=== PATIENT | female | born 1970 | race Caucasian/White ===

== ENCOUNTER 2018-04-02 18:33 | Emergency (ER) | payer OTHER, SELFPAY ==
[2018-04-02 18:36] VITALS: BP 112/65; PULSE 89; RESP 14; TEMP 36.8; O2SAT 99
--- NOTE | 2018-04-02 19:34 | ED.GENADUL_ITS ---
Discharge Plan Disposition Patient Disposition: HOME Condition: Fair Discharge Details Chief Complaint: Cellulitis Clinical Impression: Cellulitis Primary Care Provider: Janay Henriquez ED Provider: Polina Herman Home Meds and New Rx's Prescriptions: New cephalexin [Keflex] 500 mg capsule 500 mg PO QID Qty: 28 RF: 0 Continue multivitamin [One Daily] 1 EACH tablet 1 ea PO DAILY RF: 0 valacyclovir [Valtrex] 500 MG tablet 2 tab PO BID PRN Qty: 28 RF: 2 Discharge Instructions Instructions: Cellulitis (ED) Additional Instructions: Encourage hydration. Tylenol and/or ibuprofen as needed for discomfort. Please take antibiotics as prescribed. Even if symptoms improve please take the entire course. Please follow-up with primary care in 1 week if symptoms have not improved. 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 She reports that she first noted a bump last night with a central area of small ecchymosis. Reports that she did try to pop this last night with a needle. Was unable to express any fluid or discharge. States that today she then noted a similar lesion distal to this. On exam, I am able to visualize 3 very small 1-2 mm circular areas of ecchymosis with underlying area of swelling. Patient does have discomfort with palpation of these areas. Concern for possible oslers nodes. However, patient appears quite well. No murmur on exam, she appears nontoxic. Vital signs are within normal limits. She is not an IV drug user. No travel outside of the country. Discussed the case with Dr. Glass who also evaluated the patient. She does not feel at this point that there is indication to suggest endocarditis. Patient will be treated for possible infection. Will treat with Keflex. Encouraged hydration. Discussed new/wrosening symptoms and when to seek care urgently once again. Advised f/u with PCP in one week for reevaluation and advised on when to seek care urgently once again. We discussed that this may also develop into something else that may need to be reevaluated as the findings are fairly subtle at this time. All of her questions adn concerns were addressed, she is in agreement with this plan. HPI General Mode of arrival: ambulatory . Date/Time Provider Initiated Documentation: 04/02/18 18:49 . Limitations to Documentation: no limitations . Information obtained by: patient . History of Present Illness 47 year old F presents to the emergency department with the chief complaint of left thumb pain and rash, described as moderate, Quality is described as aching, and is localized to the left and upper extremity. Patient reports no radiation. Patient started experiencing this day(s) (1) and it has been constant. No relieving factors improve symptom(s), No exacerbating factors reported . Patient notes no other symptoms.; denies chest pain, cough, diaphoresis, fever/chills, nausea/vomiting and weakness. Patient did receive the following treatments prior to arrival, none Related Data Home Medications Medication Instructions Recorded Confirmed multivitamin [One Daily] 1 ea PO DAILY 11/09/12 04/02/18 valacyclovir [Valtrex] 2 tab PO BID PRN #28 tab-cap 02/12/14 04/02/18 cephalexin [Keflex] 500 mg PO QID #28 cap 04/02/18 Previous Rx's Medication Instructions Recorded cephalexin [Keflex] 500 mg PO QID #28 cap 04/02/18 Allergies Allergy/AdvReac Type Severity Reaction Status Date / Time mesalamine Allergy Intermediate Hives Verified 04/02/18 18:43 pneumococcal 23-valent Allergy Intermediate SOB, Unverified 04/02/18 18:43 polysacchari coughing [From Pneumovax 23] mercaptopurine AdvReac Severe fever, Unverified 04/02/18 18:43 elevated LFT Sulfa (Sulfonamide AdvReac Headache Unverified 04/02/18 18:43 Antibiotics) General Stated Complaint: Cellulitis BLANE: 3 Review of Systems Constitutional Reports as per HPI, Denies body ache(s), Denies chills, Denies fever(s) and Denies weakness Cardiovascular Reports as per HPI and Denies chest pain Respiratory Reports as per HPI and Denies cough Gastrointestinal Reports as per HPI, Denies abdominal pain, Denies change in bowel habits, Denies nausea and Denies vomiting Musculoskeletal Reports as per HPI and Denies tingling Integumentary/Breasts Reports as per HPI and Reports rash Neurologic Reports as per HPI, Denies tingling, Denies paresthesias and Denies weakness PFSH Family History Mother Diabetes Essential hypertension Depression Neoplasm Father Heart disease Parkinson disease Grandfather Neoplasm Parkinson disease Grandfather Neoplasm Grandmother Neoplasm Grandmother No problems noted. Brother No problems noted. Son No problems noted. Social History Smoking/Tobacco Use Status: Never Exam Const General: cooperative, healthy appearing, comfortable, no acute distress and well developed Nutritional Appearance: average body habitus and well nourished Orientation: alert and awake Resp Effort & Inspection: normal respiratory effort, able to speak in complete sentences and no respiratory distress Auscultation: clear to auscultation bilaterally, no rales, no rhonchi and no wheezes Cardio Rate: regular rate Rhythm: regular rhythm Heart Sounds: S1 normal and S2 normal Skin Rashes: rashes noted (patient has 3 small ecchymotic raised areas on the left thumb, one in the center of the pad, one slightly more distal and one under the distal aspect of the nail bed. No surrounding erythema, warmth, discharge. Pain with palpation over the central one) Neuro General: alert and awake Cognition: normal cognition Speech: speech normal Gait: normal gait Motor: muscle tone normal throughout Sensory Exam: no sensory deficits noted Extrem General: abnormal to inspection (rash as above), full ROM, normal capillary refill and normal exam except as noted Psych Appearance: grossly normal and well kempt Mental Status: mental status grossly normal Speech and Movement: speech and movement normal Course Vital Signs Temperature 36.8 C 04/02/18 18:36 Pulse 89 04/02/18 18:36 Respiratory Rate 14 04/02/18 18:36 Blood Pressure 112/65 04/02/18 18:36 Pulse Oximetry 99 04/02/18 18:36 Temperature 36.8 C 04/02/18 18:36 Temperature Source Skin 04/02/18 18:36 Pulse 89 04/02/18 18:36 Respiratory Rate 14 04/02/18 18:36 Respiratory Effort 04/02/18 18:44 Blood Pressure 112/65 04/02/18 18:36 Blood Pressure Position Sitting 04/02/18 18:36 Pulse Oximetry 99 04/02/18 18:36 Oxygen Delivery Method Room Air 04/02/18 18:36 Oxygen Flow Rate 0 04/02/18 18:36 Pain Level 5 04/02/18 18:36 Comment 04/02/18 18:36
== END 2018-04-02 19:39 | disposition home or self-care (01) ==
PROVIDERS: Emergency Provider Physician Assistant; PCP Family Medicine
DX: L03.012 Cellulitis of left finger (principal)
CPT/HCPCS: 99283

== ENCOUNTER 2018-04-04 13:52 | Outpatient (CLI) | payer OTHER, SELFPAY ==
[2018-04-04 14:18] LABS: Abs Immature Grans 0.01 k/cumm (0.0-0.09); Absolute Basophil Count 0.02 k/cumm (0.0-0.2); Absolute Eosinophil Count 0.11 k/cumm (0.0-0.7); Absolute Lymphocyte Count 1.44 k/cumm (1.2-3.4); Absolute Neutrophil Count 5.57 k/cumm (1.2-6.7); Basophils % 0.3; Eosinophils % 1.4; HCT 44.7 % (36.0-46.0); HGB 15.3 g/dL (12.0-15.5); Immature Grans % 0.1; Lymphocytes % 18.3; Mean Corp. HGB Concentration 34.2 g/dL (32.0-36.0); Mean Corpuscular Hemoglobin 31.2 pg (27.0-33.0); Mean Platelet Volume 10.9 fL (8.0-11.0); Monocytes % 8.9; Platelet Count 301 x1000/uL (130-400); RBC 4.91 m/cumm (4.00-5.20); RBC Distribution Width 13.1 % (11.7-14.6); White Blood Cell Count 7.85 k/cumm (4.4-10.8)
[2018-04-04 14:23] LABS: Bilirubin Negative (Negative); Blood Trace-intact (Negative); Clarity Clear; Glucose Negative (Negative); Ketones Negative (Negative); Leukocyte Esterase Trace (Negative); Nitrite Negative (Negative); Specific Gravity 1.015 (1.005-1.025); Urobilinogen 0.2 EU/dL (Up TO 0.2)
[2018-04-04 14:42] LABS: Bacteria Rare HPF (Negative); C & S Indicated? Yes; Casts Negative LPF (Negative); Crystals Negative HPF (Negative); Epithelial Cells Few HPF (Negative); Mucus Negative (Negative); Other Cells Rare Renal (Negative)
[2018-04-04 14:53] LABS: ESR 14 MM/HR (0-20)
[2018-04-04 15:45] LABS: ALT 30 U/L (12-78); AST 23 U/L (15-37); Albumin 3.6 g/dL (3.4-5.0); Alkaline Phosphatase 82 U/L (46-116); Anion Gap 8.6 mmol/L (3-11); BUN 13 mg/dL (7-18); Bilirubin, Total 0.2 mg/dL (0.2-1.0); CO2 28.4 mmol/L (21.0-32.0); CREATININE 0.69 mg/dL (0.55-1.02); Calcium 8.8 mg/dL (8.5-10.1); Chloride 104 mmol/L (98-107); Glucose 91 mg/dL (70-100); Potassium 3.6 mmol/L (3.5-5.1); Sodium 141 mmol/L (136-145); Total Protein 7.2 g/dL (6.4-8.2)
== END 2018-04-04 14:12 ==
PROVIDERS: PCP Family Medicine; Visit Provider Family Medicine
DX: L98.9 Disorder of the skin and subcutaneous tissue, unspecified (principal); R01.1 Cardiac murmur, unspecified
CPT/HCPCS: 36415; 80053; 85652; 87077; 81003; 81015; 85025; 86140; 87086; 87186

== ENCOUNTER 2018-04-19 02:43 | Outpatient (CLI) | payer OTHER, SELFPAY ==
[2018-04-19 16:36] LABS: Bilirubin Negative (Negative); Blood Trace-intact (Negative); Clarity Sl Cloudy; Glucose Negative (Negative); Ketones Negative (Negative); Leukocyte Esterase Small (Negative); Nitrite Negative (Negative); Urobilinogen 0.2 EU/dL (Up TO 0.2)
[2018-04-19 16:50] LABS: Bacteria Few HPF (Negative); C & S Indicated? No/Sq. Contamination; Casts Negative LPF (Negative); Crystals Negative HPF (Negative); Epithelial Cells Many HPF (Negative); Mucus Negative (Negative); Other Cells Rare Renal (Negative)
== END 2018-04-19 03:03 ==
PROVIDERS: PCP Family Medicine; Visit Provider Family Medicine
DX: N39.0 Urinary tract infection, site not specified (principal); B96.5 Pseudomonas (aeruginosa) (mallei) (pseudomallei) as the cause of diseases classified elsewhere
CPT/HCPCS: 81003; 81015

== ENCOUNTER 2018-04-23 09:42 | Outpatient (CLI) | payer OTHER, SELFPAY | END 2018-04-23 10:02 | PROVIDERS: PCP Family Medicine; Visit Provider Family Medicine | DX: N39.0 Urinary tract infection, site not specified (principal) | CPT/HCPCS: 87086 ==

== ENCOUNTER 2018-04-25 00:49 | Outpatient (CLI) | payer OTHER, SELFPAY ==
--- NOTE | 2018-04-25 13:15 | DI.US_ITS ---
SYMPTOMS/DIAGNOSIS: PSEUDOMONAS UTI, ? UNDERLYING URINARY ANOMALY, B96.5, N39.0 RENAL ULTRASOUND: Routine examination. The right kidney measures 12.1 cm long. No renal masses or obstruction is seen. There is blood flow to the right kidney. There is a tiny 4 mm echogenic focus in the lower pole of the kidney, which may represent a nonobstructing stone. The left kidney measures 12.2 cm long. No renal mass, calculus or obstruction is identified. There is blood flow to the left kidney. The prevoid urinary bladder volume is 860 cc. Postvoid urinary bladder volume is 110 cc. The bladder wall appeared smooth. No intraluminal masses were present. Both ureteral jets were visualized. IMPRESSION: 1. Question of a 4 mm nonobstructing lower pole right renal stone. 2. Large postvoid urinary bladder volume.
== END 2018-04-25 01:09 ==
PROVIDERS: PCP Family Medicine; Visit Provider Family Medicine
DX: N39.0 Urinary tract infection, site not specified (principal); B96.5 Pseudomonas (aeruginosa) (mallei) (pseudomallei) as the cause of diseases classified elsewhere; N20.0 Calculus of kidney
CPT/HCPCS: 76770

== ENCOUNTER 2018-08-07 10:29 | Outpatient (REF) | payer OTHER, SELFPAY ==
--- NOTE | 2018-08-07 09:30 | PAPFT_PTH ---
PATIENT: Lynne Schneider LOC: [facility] U#:[id number] AGE/SX: 47/F ROOM: RE08/07/[address]: Janay Henriquez MD, DC : 1970 BED: DIS: 08/07/2018 SPEC #: [id number] RECD: 08/07/18 13:04 STATUS: APOLONIA GORDON #: [id number] ALTHEA: 08/07/18 09:[address]: Janay Henriquez DEPT: [facility] Cytology RECD BY: Adilene Shepherd Tissues: 1 - CX/ENDOCX FOR PAP SMEARS Procedures: PAP THIN PREP/UVM Screening HPV DNA PROBE Comments: [id number]
== END 2018-08-07 10:49 ==
LOC: LBN 10:29
PROVIDERS: PCP Family Medicine; Visit Provider Family Medicine
DX: Z12.4 Encounter for screening for malignant neoplasm of cervix (principal); Z11.51 Encounter for screening for human papillomavirus (HPV)
CPT/HCPCS: 88142; 87624

== ENCOUNTER 2021-06-25 01:28 | Outpatient (CLI) | payer OTHER, SELFPAY ==
--- NOTE | 2021-06-25 07:15 | DI.MAMMO_ITS ---
Exam(s) MAMMO SCREENING EXAM: MAMMO SCREENING CLINICAL HISTORY: screening,BASELINE, Z12.39. TECHNIQUE: Bilateral full field digital CC and MLO mammographic images were obtained with 3D tomosyn thesis and utilizing computer aided detection (CAD). COMPARISON: None. This is a baseline screening mammogram on this 50-year-old patient. Positive fam bessie history. Her mother was apparently diagnosed with breast cancer after age 50. FINDINGS: The fibroglandular tissue pattern is very dense, this decreasing the sensitivity of the mammogram for finding in underlying lesions. No obvious radiographic findings in left breast. In the right breast on 3D CC imaging there is a subtle suggestion a possible nodule measuring 4 x 3 m illimeters, located 4 cm in from the nipple. There is a small group of benign-appearing microcalcifications in the right breast noted. There is no significant architectural distortion nor skin thickening-retraction. IMPRESSION: Very dense bilateral fibroglandular tissue. Possible small right breast nodule. Spot compression CC view and ultrasound examination are recommended. Given the density of this patient's fibroglandular tissue and significant family history I recommend that she undergo complete bilateral breast ultraso und. BI-RADS Category 0 - Assessment Incomplete: Need additional imaging evaluation Breast Density - Category D - Extremely dense Breast density Category C or D implies that the patient has dense breast tissue. Dense breast tissue can make it harder to find cancer on a mammogram. Dense breast tissue is also associated with an incr eased risk of breast cancer. This information about the result of the mammogram report was provided to the patient to raise their awareness. Use this report when you speak with the patient about their risks for breast cancer, which includes their family history. At that time, you may recommend additional screening tests (Ultrasoun d or MRI) as these tests may add significant information. A negative radiographic report should not delay biopsy if a dominant or clinically suspicious mass is present. Up to ten percent of cancers are not identified on mammography. A negative report may reinforce clinical impression. Adenosis and dense breasts may obscure an underlying neoplasm. False positive reports average 6 to 10%. Patient will receive a letter notifying them of these results.
== END 2021-06-25 01:48 ==
PROVIDERS: PCP Family Medicine; Visit Provider Family Medicine
DX: Z12.31 Encounter for screening mammogram for malignant neoplasm of breast (principal); R92.8 Other abnormal and inconclusive findings on diagnostic imaging of breast
CPT/HCPCS: 77063; 77067

== ENCOUNTER 2021-07-07 00:35 | Outpatient (CLI) | payer OTHER, SELFPAY ==
--- NOTE | 2021-07-07 | DI.US_ITS ---
Exam(s) MG MAMMO SCREEN CALL BACK UNI US BREAST LT COMPLETE US BREAST RT COMPLETE EXAM: MG MAMMO SCREEN CALL BACK UNI CLINICAL HISTORY: POSSIBLE NODULE RT BREAST. TECHNIQUE: Craniocaudal spot compression digital Mammography view of the right breast with Computer Aided Diagnosis followed by Tomosynthesis andbilateral breast ultrasound. COMPARISON: [facility] MAMMO SCREENING from 06/25/2021 baseline exam FINDINGS: Mammography/Tomosynthesis: Masses/Architectural Distortion: None seen. Microcalcifictions: No suspicious pleomorphic-type are seen. Skin Thickening/Nipple Retraction: None. Bilateral breast US: Echotexture: Normal appearance of the glandular tissue. Shadowing: No suspicious foci. Cyst: None. Solid lesions: None seen. Ductal dilation: None. IMPRESSION: 1. No evidence of malignancy is noted. 2. Unless there is more urgent need, follow-up screening mammography is recommended, as per [place] [employer] guidelines. 3. The findings were discussed with the patient on the date of the examination. BI-RADS Category 1 - Negative Breast Density - Category D - Extremely dense A mammogram that demonstrates density of C or D indicates the patient's breast tissue is dense. Dense breast tissue is very common and is not abnormal, but dense breast tissue can make it harder to find cancer on a mammogram. Also, dense breast tissue may increase their breast cancer risk. This informa tion about the result of the mammogram report was provided to the patient to raise their awareness. U se this report when you speak with the patient about their risks for breast cancer, which includes th eir family history. At that time, you may recommend for more screening tests (Ultrasound or MRI) as t hey might be useful based on their risk. A negative radiographic report should not delay biopsy if a dominant or clinically suspicious mass is present. Up to ten percent of cancers are not identified on mammography. A negative report may reinforce clinical impression. Adenosis and dense breasts may obscure an underlying neoplasm. False positive reports average 6 to 10%. Patient will receive a letter notifying them of these results.
--- NOTE | 2021-07-07 | DI.US_ITS ---
Exam(s) MAMMO SCREEN CALL BACK UNI US BREAST LT COMPLETE EXAM: MAMMO SCREEN CALL BACK UNI CLINICAL HISTORY: POSSIBLE NODULE RT BREAST. TECHNIQUE: Craniocaudal spot compression digital Mammography view of the right breast with Computer Aided Diagnosis followed by Tomosynthesis andbilateral breast ultrasound. COMPARISON: [facility] MAMMO SCREENING from 06/25/2021 baseline exam FINDINGS: Mammography/Tomosynthesis: Masses/Architectural Distortion: None seen. Microcalcifictions: No suspicious pleomorphic-type are seen. Skin Thickening/Nipple Retraction: None. Bilateral breast US: Echotexture: Normal appearance of the glandular tissue. Shadowing: No suspicious foci. Cyst: None. Solid lesions: None seen. Ductal dilation: None. IMPRESSION: 1. No evidence of malignancy is noted. 2. Unless there is more urgent need, follow-up screening mammography is recommended, as per [place] guidelines. 3. The findings were discussed with the patient on the date of the examination. BI-RADS Category 1 - Negative Breast Density - Category D - Extremely dense A mammogram that demonstrates density of C or D indicates the patient's breast tissue is dense. Dense breast tissue is very common and is not abnormal, but dense breast tissue can make it harder to find cancer on a mammogram. Also, dense breast tissue may increase their breast cancer risk. This informa tion about the result of the mammogram report was provided to the patient to raise their awareness. U se this report when you speak with the patient about their risks for breast cancer, which includes th eir family history. At that time, you may recommend for more screening tests (Ultrasound or MRI) as t hey might be useful based on their risk. A negative radiographic report should not delay biopsy if a dominant or clinically suspicious mass is present. Up to ten percent of cancers are not identified on mammography. A negative report may reinforce clinical impression. Adenosis and dense breasts may obscure an underlying neoplasm. False positive reports average 6 to 10%. Patient will receive a letter notifying them of these results.
== END 2021-07-07 00:55 ==
PROVIDERS: PCP Family Medicine; Visit Provider Family Medicine
DX: R92.8 Other abnormal and inconclusive findings on diagnostic imaging of breast (principal)
CPT/HCPCS: 76642; 77063; 77067

== ENCOUNTER 2022-02-28 15:36 | Outpatient (REF) | payer OTHER, SELFPAY ==
[2022-02-28 20:19] LABS: Source Nasal/Nares
[2022-03-01 12:05] LABS: COVID-19 PCR Negative (Negative)
== END 2022-02-28 15:37 | disposition home or self-care (01) ==
LOC: LBN 15:36
PROVIDERS: PCP Family Medicine; Visit Provider Family Medicine
DX: Z01.812 Encounter for preprocedural laboratory examination (principal); Z20.822 Contact with and (suspected) exposure to COVID-19
CPT/HCPCS: 87635

== ENCOUNTER 2022-06-16 10:33 | Outpatient (REF) | payer OTHER, SELFPAY ==
--- NOTE | 2022-06-16 09:45 | PAPFT_PTH ---
PATIENT: Lynne Schneider LOC: [facility] #:[id number] AGE/SX: 51/F ROOM: RE06/16/[address]: Janay Henriquez MD, DC : 1970 BED: DIS: 06/16/2022 SPEC #: [id number] RECD: 06/16/22 13:10 STATUS: APOLONIA REQ #: [id number] ALTHEA: 06/16/22 09:[address]: Janay Henriquez DEPT: [facility] Cytology RECD BY: Adilene Shepherd Tissues: 1 - CX/ENDOCX FOR PAP SMEARS Procedures: PAP THIN PREP/UVM Screening HPV DNA PROBE Comments: [id number]
== END 2022-06-16 10:34 | disposition home or self-care (01) ==
LOC: LBN 10:33
PROVIDERS: PCP Family Medicine; Visit Provider Family Medicine
DX: Z12.4 Encounter for screening for malignant neoplasm of cervix (principal); Z11.51 Encounter for screening for human papillomavirus (HPV)
CPT/HCPCS: 88142; 87624

== ENCOUNTER 2022-06-30 02:18 | Outpatient (CLI) | payer OTHER, SELFPAY ==
[2022-06-30 07:19] LABS: HCT 46.6 % (36.0-46.0); HGB 15.7 g/dL (11.2-15.7); MCH 31.3 pg (27.0-33.0); MCHC 33.7 % (32.0-36.0); MCV 93 fL (80-95); Platelet Count 334 10^3/uL (130-400); RBC 5.02 10^6/uL (3.93-5.22); RDW 11.9 % (11.7-14.6); RDW-SD 40.6 fL; WBC 4.99 10^3/uL (4.4-10.8)
[2022-06-30 07:46] LABS: Hemoglobin A1C 5.1 % (<5.7)
[2022-06-30 07:58] LABS: ALT 32 U/L (14-59); AST 22 U/L (15-37); Albumin 3.7 g/dL (3.4-5.0); Alkaline Phosphatase 90 U/L (46-116); Anion Gap 5.6 mmol/L (3-11); BUN 19 mg/dL (7-18); Bilirubin, Total 0.4 mg/dL (0.2-1.0); C-Reactive Protein < 0.05 mg/dL (0.0-0.3); CO2 31.4 mmol/L (21.0-32.0); CREATININE 0.9 mg/dL (0.55-1.02); Calcium 9.2 mg/dL (8.5-10.1); Chloride 104 mmol/L (98-107); Glucose 92 mg/dL (74-106); Sodium 141 mmol/L (136-145); TSH (W/Ref FT4) 1.78 uIU/mL (0.36-3.74); Total Protein 7.3 g/dL (6.4-8.2)
[2022-06-30 08:10] LABS: Vitamin D 25 Total 51.1 ng/mL (30-100)
== END 2022-06-30 02:19 | disposition home or self-care (01) ==
PROVIDERS: PCP Family Medicine; Visit Provider Family Medicine
DX: Z00.00 Encounter for general adult medical examination without abnormal findings (principal); E11.9 Type 2 diabetes mellitus without complications
CPT/HCPCS: 36415; 80053; 82306; 85027; 83036; 84443; 86140

== ENCOUNTER 2022-07-08 01:06 | Outpatient (CLI) | payer OTHER, SELFPAY ==
--- NOTE | 2022-07-08 08:45 | DI.MAMMO_ITS ---
Exam(s) MAMMO SCREENING EXAM: MAMMO SCREENING CLINICAL HISTORY: screening, Z12.39. TECHNIQUE: Bilateral full field digital CC and MLO mammographic images were obtained with 3D tomosyn thesis and utilizing computer aided detection (CAD). COMPARISON: 2021 FINDINGS: Masses/Architectural Distortion: None seen. Microcalcifications: No suspicious pleomorphic-type are seen. Skin Thickening/Nipple Retraction: None. IMPRESSION: 1. No significant interval change with no specific features of malignancy noted. 2. Unless there is more urgent need, annual screening mammography is recommended, as per [place] [employer] guidelines. BI-RADS Category 1-negative Breast Density - Category D - extremely dense Breast Density Category D: The mammogram demonstrates the patient's breast tissue is dense. Dense patrick ast tissue is very common and is not abnormal but dense breast tissue can make it harder to find canc er on a mammogram. Also, dense breast tissue may increase their breast cancer risk. This information about the result of the mammogram report was provided to the patient to raise their awareness. Use th is report when you speak with the patient about their risks for breast cancer, which includes their f amily history. At that time, you may recommend for more screening tests (Ultrasound or MRI) as they m ight be useful based on their risk. A negative radiographic report should not delay biopsy if a dominant or clinically suspicious mass is present. Up to ten percent of cancers are not identified on mammography. A negative report may reinforce clinical impression. Adenosis and dense breasts may obscure an underlying neoplasm. False positive reports average 6 to 10%.
== END 2022-07-08 01:26 ==
LOC: DI 01:06
PROVIDERS: PCP Family Medicine; Visit Provider Family Medicine
DX: Z12.31 Encounter for screening mammogram for malignant neoplasm of breast (principal); R92.8 Other abnormal and inconclusive findings on diagnostic imaging of breast
CPT/HCPCS: 77063; 77067

== ENCOUNTER 2022-07-15 01:28 | Outpatient (CLI) | payer OTHER, SELFPAY ==
[2022-07-15 08:04] LABS: Calculated LDL 117 mg/dL (<100); Cholesterol 186 mg/dL (<200); HDL Cholesterol 61 mg/dL (40-60); Triglyceride 42 mg/dL (<150)
== END 2022-07-15 01:29 | disposition home or self-care (01) ==
PROVIDERS: PCP Family Medicine; Visit Provider Family Medicine
DX: Z00.00 Encounter for general adult medical examination without abnormal findings (principal); Z13.220 Encounter for screening for lipoid disorders
CPT/HCPCS: 36415; 80061

== ENCOUNTER → 2023-04-12 02:43 | Outpatient (CLI) | payer OTHER, SELFPAY ==
--- NOTE | 2023-04-12 08:45 | DI.RAD_ITS ---
Exam(s) XR SHOULDER LT COMPLETE 2+V EXAM: XR SHOULDER LT COMPLETE 2+V CLINICAL HISTORY: left shoulder pain, M25.512. TECHNIQUE: 2D digital imaging was performed of the left shoulder. Five images were obtained. AP, G rashey, Y-view and axillary views were obtained. COMPARISON: No exams were available for comparison FINDINGS: BONES: No acute fracture is present. No bony destructive lesion is seen. JOINTS: No dislocation present. SOFT TISSUE: Normal. IMPRESSION: Unremarkable radiographs of the left shoulder. DATA REPOSITORY: RADIATION DOSE DELIVERED:
== END ==
PROVIDERS: PCP Family Medicine; Visit Provider Family Medicine
DX: M25.512 Pain in left shoulder (principal)
CPT/HCPCS: 73030

== ENCOUNTER → 2023-05-30 03:09 | Outpatient (CLI) | payer OTHER, SELFPAY ==
--- NOTE | 2023-05-30 06:15 | DI.MRI_ITS ---
Exam(s) MR UPPER JOINT LT WO EXAM: MR UPPER JOINT LT WO CLINICAL HISTORY: rotator cuff tear,internal derangement lt shoulder,m24.812 TECHNIQUE: Multiplanar multisequence MRI of the shoulder was performed. COMPARISON: CR XR SHOULDER LT COMPLETE 2+V from 04/12/2023 FINDINGS: MARROW:There is no evidence of fracture, Hill-Sachs deformity, nor ominous osseous lesions. GLENOHUMERAL JOINT: No joint effusion nor obvious loose intra-articular bodies. No chondral defects. No osteophytes. No degenerative subarticular cysts. No evidence of capsular tear. The inferior glenoh umeral ligament is intact. ROTATOR CUFF MECHANISM: AC JOINT/ACROMIUM: AC joint appears unremarkable.. There is no evidence of os acromiale. Supraspinatus: There is signal abnormality in the supraspinatus tendon consistent with tendinitis, mo st prominent in the anterior aspect of the tendon. There is no evidence of tendon tear. No muscle b sundar atrophy there is no fluid in the subacromial bursa. Infraspinatus: Intact. No evidence of tear nor muscle atrophy. Teres Minor: Intact. No evidence of tear nor muscle atrophy. Subscapularis/anterior cuff: Intact. No abnormal signal at the level of the multipennate insertional fibers. No significant tear nor atrophy. BICEPS TENDON: Exhibits normal position within the intertubercular groove with no evidence of biceps tear. No significant tenosynovitis. LABRUM: There is fluid signal interposed between the anterior superior labrum and osseous glenoid con sistent with anterior labral tear. There is thin fluid signal interposed between the anterior aspect of the superior labrum and osseous glenoid which may be continuation of the tear versus sublabral re cess. The posterior labrum is intact. Inferior labrum is intact. There is mild increased signal wi thin the inferior glenohumeral ligament QUADRILATERAL SPACE: No evidence of mass in the region of the axillary nerve and dorsal circumflex hu meral vessels. Visualized triceps muscle at this level appears unremarkable. IMPRESSION: 1. Increased signal within the supraspinatus tendon consistent with tendinitis-tendinosis. No high-g rade tear. No fluid in the subacromial-subdeltoid bursa. The other muscles of the rotator cuff mech anism appear unremarkable. There are no significant degenerative changes in the AC joint and no oste ophytic ridge on the undersurface of the acromion. 2. There is tear of the anterior labrum. Also possible SLAP tear versus a prominent sublabral recess . 3. Increased signal evident within the inferior glenohumeral ligament which may indicate partial tear ing. 4. No evidence of biceps tendon tear nor displacement. 5. No significant osteoarthritic degenerative changes in the glenohumeral joint and no evidence of j oint effusion or loose intra-articular bodies. DATA REPOSITORY:
== END ==
PROVIDERS: PCP Family Medicine; Visit Provider Family Medicine
DX: M65.232 Calcific tendinitis, left forearm (principal)
CPT/HCPCS: 73221

== ENCOUNTER → 2023-05-31 13:19 | Outpatient (BNVA) | payer OTHER, SELFPAY | PROVIDERS: PCP Family Medicine; Referring Provider Family Medicine; Visit Provider Student in an Organized Health Care Education/Training Program | DX: M75.82 Other shoulder lesions, left shoulder (principal); M75.02 Adhesive capsulitis of left shoulder | CPT/HCPCS: 20610; 99202; J1030 ==

== ENCOUNTER → 2023-08-01 14:24 | Outpatient (BNVA) | payer OTHER, SELFPAY | PROVIDERS: PCP Family Medicine; Visit Provider Student in an Organized Health Care Education/Training Program | DX: M75.82 Other shoulder lesions, left shoulder (principal); M75.02 Adhesive capsulitis of left shoulder | CPT/HCPCS: 99213 ==

== ENCOUNTER → 2023-11-20 02:48 | Outpatient (CLI) | payer OTHER, SELFPAY ==
--- NOTE | 2023-11-20 06:15 | DI.MAMMO_ITS ---
Exam(s) MAMMO SCREENING EXAM: MAMMO SCREENING CLINICAL HISTORY: screening,Z12.39 TECHNIQUE: Mammograms were interpreted according to the usual protocol including computer analysis w [employer] CAD system, tomosynthesis and C-view imaging. COMPARISON: 2021 and 2022 FINDINGS: The breasts are composed of heterogeneously dense fibroglandular densities, Breast Density category C . No suspicious masses or suspicious microcalcifications are seen. No skin thickening or abnormal axillary lymph nodes are seen. There has been no significant change from prior exams. IMPRESSION: BI-RADS Category 1, Negative mammogram. Yearly screening mammography is recommended. Breast Density Category C, heterogeneously Dense. The mammogram demonstrates the patient's breast tissue is dense. Dense breast tissue is very common a nd is not abnormal but dense breast tissue can make it harder to find cancer on a mammogram. Also, de nse breast tissue may increase breast cancer risk. This information about the result of the mammogram report was provided to the patient to raise their awareness. Use this report when you speak with the patient about their risks for breast cancer, which includes their family history. At that time, you may recommend additional screening tests (Ultrasound or MRI) as they might be useful based on their r isk. A negative radiographic report should not delay biopsy if a dominant or clinically suspicious mass is present. Up to ten percent of cancers are not identified on mammography. A negative report may reinforce clinical impression. Adenosis and dense breasts may obscure an underlying neoplasm. False positive reports average 6 to 10%.
== END ==
PROVIDERS: PCP Family Medicine; Visit Provider Family Medicine
DX: Z12.31 Encounter for screening mammogram for malignant neoplasm of breast (principal)
CPT/HCPCS: 77063; 77067

== ENCOUNTER 2024-03-28 01:53 | Outpatient (CLI) | payer OTHER, SELFPAY ==
[2024-03-28 10:41] LABS: Vitamin B12 > 2000 pg/mL (193-986)
== END 2024-03-28 01:54 | disposition home or self-care (01) ==
LOC: LBO 01:53
PROVIDERS: PCP Family Medicine; Visit Provider Family Medicine
DX: K13.79 Other lesions of oral mucosa (principal)
CPT/HCPCS: 36415; 82607

== ENCOUNTER 2024-04-10 08:23 | Outpatient (CLI) | payer OTHER, SELFPAY ==
[2024-04-10 12:26] LABS: Abs Immature Grans 0.02 10^3/uL (0.0-0.06); Absolute Basophil Count 0.03 10^3/uL (0.0-0.2); Absolute Eosinophil Count 0.07 10^3/uL (0.0-0.7); Absolute Lymphocyte Count 1.26 10^3/uL (1.2-3.4); Absolute Monocyte Count 0.52 10^3/uL (0.1-0.8); Absolute Neutrophil Count 5.04 10^3/uL (1.2-6.7); Basophils % 0.4 %; HGB 14.9 g/dL (11.2-15.7); Immature Grans % 0.3 %; Lymphocytes % 18.2 %; MCH 31.1 pg (27.0-33.0); MCHC 33.9 % (32.0-36.0); MCV 92 fL (80-95); MPV 10.9 fL (8.0-11.0); Monocytes % 7.5 %; Neutrophils % 72.6 %; Platelet Count 377 10^3/uL (130-400); RBC 4.79 10^6/uL (3.93-5.22); RDW 12.7 % (11.7-14.6); RDW-SD 42.6 fL; WBC 6.94 10^3/uL (4.4-10.8)
[2024-04-10 12:55] LABS: ESR 11 mm/hr (0-30)
[2024-04-10 13:06] LABS: ALT 20 U/L (14-59); AST 19 U/L (15-37); Albumin 3.4 g/dL (3.4-5.0); Alkaline Phosphatase 88 U/L (46-116); Anion Gap 5.7 mmol/L (3-11); BUN 15 mg/dL (7-18); Bilirubin, Total 0.56 mg/dL (0.2-1.0); CO2 29.3 mmol/L (21.0-32.0); CREATININE 0.9 mg/dL (0.55-1.02); Calcium 9.3 mg/dL (8.5-10.1); Chloride 104 mmol/L (98-107); Estimated GFR 76.44 (mL/min/1.73m2); Ferritin 66 ng/mL (8-252); Glucose 87 mg/dL (74-106); Potassium 3.7 mmol/L (3.5-5.1); Sodium 139 mmol/L (136-145); TSH (W/Ref FT4) 1.32 uIU/mL (0.36-3.74); Total Protein 7.4 g/dL (6.4-8.2)
[2024-04-10 17:51] LABS: Rheumatoid Factor 8.7 IU/mL (<12.0)
[2024-04-10 19:15] LABS: HIV-1/2 Ag & Ab Screen Negative (Negative)
[2024-04-10 19:19] LABS: Hepatitis C Ab w Rflx HCV PCR Negative (Negative)
[2024-04-12 13:56] LABS: ANA Interpretation Negative (Negative)
== END 2024-04-10 08:24 | disposition home or self-care (01) ==
LOC: LOS 08:23
PROVIDERS: PCP Family Medicine; Referring Provider Family Medicine; Visit Provider Family Medicine
DX: Z11.59 Encounter for screening for other viral diseases; Z11.4 Encounter for screening for human immunodeficiency virus [HIV]; K13.0 Diseases of lips; Z00.00 Encounter for general adult medical examination without abnormal findings; E03.9 Hypothyroidism, unspecified
CPT/HCPCS: 36415; 80053; 85652; 86803; 87389; 82728; 84443; 84550; 85025; 86038; 86431

== ENCOUNTER 2024-11-21 01:25 | Outpatient (CLI) | payer OTHER, SELFPAY ==
--- NOTE | 2024-11-21 06:15 | DI.MAMMO_ITS ---
Exam(s) MAMMO SCREENING EXAM: MAMMO SCREENING CLINICAL HISTORY: screening,z12.39. TECHNIQUE: Bilateral full field digital CC and MLO mammographic images were obtained with 3D tomosynthesis and utilizing computer aided detection (CAD). COMPARISON: Prior mammograms were reviewed. FINDINGS: The fibroglandular tissue pattern is again noted be moderately dense. There are no new left breast findings. In the right breast on the CC view there is an area of asymmetric density- possible nodule measuring approximately 2.8 by 0.4 cm located 4 cm in from the nipple. Slightly more prominent than on prior studies. This may just represent asymmetric tissue but recommend further imaging. There is a small group of benign-appearing microcalcifications in the right breast which remain stable. There are no new malignant-appearing microcalcification groups in either breast. There is no significant architectural distortion nor skin thickening-retraction. IMPRESSION: 1. This bilateral fibroglandular tissue. No radiographic evidence of malignancy in the left breast. 2. Asymmetric density-possible nodule in the right breast. Spot compression view and ultrasound are recommended. BI-RADS Category 0 - Incomplete: Need additional imaging evaluation Breast Density - Category C - The breast are heterogeneously dense, which may obscure small masses. Breast density Category C or D implies that the patient has dense breast tissue. Dense breast tissue can make it harder to find cancer on a mammogram. Dense breast tissue is also associated with an increased risk of breast cancer. This information about the result of the mammogram report was provided to the patient to raise their awareness. Use this report when you speak with the patient about their risks for breast cancer, which includes their family history. At that time, you may recommend additional screening tests (Ultrasound or MRI) as these tests may add significant information. A negative radiographic report should not delay biopsy if a dominant or clinically suspicious mass is present. Up to ten percent of cancers are not identified on mammography. A negative report may reinforce clinical impression. Adenosis and dense breasts may obscure an underlying neoplasm. False positive reports average 6 to 10%. Patient will receive a letter notifying them of these results.
== END 2024-11-21 01:45 ==
PROVIDERS: PCP Family Medicine; Visit Provider Family Medicine
DX: Z12.31 Encounter for screening mammogram for malignant neoplasm of breast (principal); R92.333 Mammographic heterogeneous density, bilateral breasts
CPT/HCPCS: 77063; 77067

== ENCOUNTER 2024-11-25 02:31 | Outpatient (CLI) | payer OTHER, SELFPAY ==
--- NOTE | 2024-11-25 | DI.MAMMO_ITS ---
Exam(s) MG MAMMO SCREEN CALL BACK UNI US BREAST RT LIMITED EXAM: MG MAMMO SCREEN CALL BACK UNI and U/S breast RT limited CLINICAL HISTORY: F/U ABNL MAMMO, R92.8, RT ASYMMETRIC DENSITY,? NODULE. TECHNIQUE: Craniocaudal and mediolateral oblique Full Field Digital Mammography views of the right breast with Computer Aided Diagnosis followed by Tomosynthesis and limited right breast ultrasound. COMPARISON: Comparison is made with prior examinations. FINDINGS: Mammography/Tomosynthesis: Masses/Architectural Distortion: The area of concern is less prominent on the additional views and appears represent overlying fibroglandular tissue. No suspicious masses or areas of architectural distortion are present. Microcalcifictions: No suspicious pleomorphic-type are seen. Skin Thickening/Nipple Retraction: None. Limited right breast US: Echotexture: Normal appearance of the glandular tissue. Shadowing: No suspicious foci. Cyst: None. Solid lesions: None seen. Ductal dilation: None. IMPRESSION: 1. No evidence of malignancy is noted. 2. Unless there is more urgent need, follow-up screening mammography is recommended, as per [employer] [employer] guidelines. 3. The findings were discussed with the patient on the date of the examination. BI-RADS Category 1 - Negative Breast Density - Category C - The breast are heterogeneously dense, which may obscure small masses. Breast density Category C or D implies that the patient has dense breast tissue. Dense breast tissue can make it harder to find cancer on a mammogram. Dense breast tissue is also associated with an increased risk of breast cancer. This information about the result of the mammogram report was provided to the patient to raise their awareness. Use this report when you speak with the patient about their risks for breast cancer, which includes their family history. At that time, you may recommend additional screening tests (Ultrasound or MRI) as these tests may add significant information. A negative radiographic report should not delay biopsy if a dominant or clinically suspicious mass is present. Up to ten percent of cancers are not identified on mammography. A negative report may reinforce clinical impression. Adenosis and dense breasts may obscure an underlying neoplasm. False positive reports average 6 to 10%. Patient will receive a letter notifying them of these results.
== END 2024-11-25 02:51 ==
LOC: DI 02:31
PROVIDERS: PCP Family Medicine; Visit Provider Family Medicine
DX: Z12.31 Encounter for screening mammogram for malignant neoplasm of breast (principal); R92.8 Other abnormal and inconclusive findings on diagnostic imaging of breast; R92.333 Mammographic heterogeneous density, bilateral breasts
CPT/HCPCS: 76642; 77063; 77067